=== PATIENT | male | born 1975 | race Native Hawaiian/Other Pacific Islander ===

== ENCOUNTER 2023-06-04 08:00 | Outpatient (CLI) | payer OTHER ==
[2023-06-04 08:20] LABS: PLATELET COUNT 228 K/uL (142-355)
[2023-06-04 08:29] LABS: POTASSIUM 4.3 mmol/L (3.6-5.2)
== END 2023-06-04 18:53 | disposition home or self-care (01) ==
LOC: LABW 08:00
PROVIDERS: ATTEND Internal Medicine Cardiovascular Disease
DX: Z79.899 Other long term (current) drug therapy (principal); E11.59 Type 2 diabetes mellitus with other circulatory complications
CPT/HCPCS: 36415; 80053; 80061; 83036; 83525; 85027